=== PATIENT | male | born 1990 | race African-American/Black ===

== ENCOUNTER 2016-06-25 19:34 | Emergency (ER) | payer MEDICAID, OTHER ==
[~2016-06-25] VITALS: Ht 188 cm; Wt 77.1 kg
[2016-06-25 20:09] LABS: Basophils # (auto) 0.1 uL; Basophils % (auto) 0.4 % (0.0-2.0); DEFINITIVE VIEW TRANSMISSION; Eosinophils # (auto) 0 uL; Eosinophils % (auto) 0.1 % (0.0-7.0); Hematocrit 32.2 % (41.0-53.0); Hemoglobin 10.4 g/dL (13.5-17.5); Lymphocytes # (auto) 3.8 uL; Lymphocytes % (auto) 19.6 % (10.0-50.0); Mean Corpuscular Hemoglobin 26.8 pg (28.0-32.0); Mean Corpuscular Hgb Conc. 32.3 g/dL (32.0-36.0); Mean Corpuscular Volume 82.7 fL (80.0-100.0); Mean Platelet Volume 12.5 fL (7.4-10.4); Monocytes # (auto) 1.4 uL; Monocytes % (auto) 7.4 % (0.0-12.0); Neutrophils # (auto) 14.1 uL; Neutrophils % (auto) 72.5 % (37.0-80.0); Platelet Count (auto) 192 10^3/uL (140-450); Red Cell Distribution Width 15.4 % (11.6-16.0); White Blood Cell 19.4 10^3/uL (4.4-10.8)
[2016-06-25 20:14] LABS: Partial Thromboplastin Time 23.4 sec (22.64-33.71)
[2016-06-25 20:23] LABS: BUN/Creatinine Ratio 7.8; Calcium 7.9 mg/dL (8.5-10.1); Potassium 3.1 mmol/L (3.5-5.1)
[2016-06-25 20:25] LABS: INR 1.2 (0.9-1.15)
[2016-06-25 20:29] LABS: Acetaminophen < 2.0 ug/mL (10-30); Salicylate < 1.7 mg/dL (2.8-20.0)
[2016-06-25 20:33] LABS: Bilirubin, Total 0.3 mg/dL (0.2-1.0); Total Protein 8.1 g/dL (6.4-8.2)
[2016-06-25 21:00] LABS: Urine Bilirubin Negative (Negative); Urine Blood Negative /uL (Negative); Urine Color Yellow (Yellow); Urine Glucose TRACE mg/dL (Normal); Urine Hyaline Cast MANY /lpf (0 - 2); Urine Ketone TRACE (Negative); Urine Mucus FEW (None Seen); Urine Nitrite Negative (Negative); Urine RBC 1 /hpf (0 - 3); Urine Squamous Epithelial Cell FEW /hpf (<5)
[2016-06-25] MEDS ORDERED: CEFTRIAXONE SODIUM 2 GM in D5W 5% 50 ML IV ONE (22:00)
[2016-06-25] MEDS ORDERED: SULFAMETHOX W/TRIMETH(800/160MG) DS TAB PO ONE (22:00)
[2016-06-25] MEDS ORDERED: cefTRIAXone 1GM/50ML D5W 50 ML IV ONE ×2 (22:30)
[2016-06-25] MEDS ORDERED: VANCOMYCIN 1GM/250ML D5W 250 ML IV ONE (22:30)
[2016-06-26] MEDS ORDERED: LIDOCAINE 2%HCL (LOCAL ANESTH.) INJ 20ML MDV ONE (06:02)
[2016-06-26] MEDS ORDERED: BACITRACIN-POLYMYXIN B TOPICAL OINT UD TOP ONE (06:10)
[2016-06-26] MEDS ORDERED: SODIUM CHLORIDE 0.9% 1,000 ML IV ONE (08:45)
[2016-06-26] MEDS ORDERED: POTASSIUM CHL 20 Meq TABLET PO ONE (08:45)
[2016-06-26 09:02] LABS: Basophils # (auto) 0 uL; Basophils % (auto) 0.3 % (0.0-2.0); DEFINITIVE VIEW TRANSMISSION; Eosinophils # (auto) 0 uL; Eosinophils % (auto) 0.1 % (0.0-7.0); Hemoglobin 8.9 g/dL (13.5-17.5); Lymphocytes # (auto) 2.1 uL; Lymphocytes % (auto) 27.1 % (10.0-50.0); Mean Corpuscular Hgb Conc. 32.8 g/dL (32.0-36.0); Mean Corpuscular Volume 82.1 fL (80.0-100.0); Mean Platelet Volume 11.4 fL (7.4-10.4); Monocytes # (auto) 0.7 uL; Monocytes % (auto) 9.3 % (0.0-12.0); Neutrophils % (auto) 63.2 % (37.0-80.0); Platelet Count (auto) 127 10^3/uL (140-450); Red Cell Distribution Width 15.6 % (11.6-16.0); SUSPECT VIEW TRANSMISSION; White Blood Cell 7.9 10^3/uL (4.4-10.8)
[2016-06-26 09:25] LABS: BUN/Creatinine Ratio 9.5; Bilirubin, Total 0.3 mg/dL (0.2-1.0); Calcium 8.2 mg/dL (8.5-10.1); Potassium 4.1 mmol/L (3.5-5.1)
[2016-06-26] MEDS ORDERED: SODIUM CHLORIDE 0.9% 1,000 ML IV SCH (09:45)
[2016-06-26] MEDS: SODIUM CHLORIDE 0.9% 1,000 ML IV SCH ×2 (10:30→20:30)
[2016-06-26 11:49] LABS: Hypochromia Slight; Platelet Estimate Decreased
[2016-06-27] MEDS: SODIUM CHLORIDE 0.9% 1,000 ML IV SCH (06:30)
[2016-06-27] MEDS ORDERED: SODIUM CHLORIDE 0.9% 1,000 ML IV SCH (09:45)
[2016-06-28] MEDS ORDERED: LORazepam 0.5 MG TAB PO ONE (00:45)
[2016-06-28] MEDS ORDERED: LORATADINE 10 MG TAB PO ONE (17:00)
[2016-06-28] MEDS ORDERED: LORATADINE 10 MG TAB ONE (22:00)
[2016-06-29 07:30] VITALS: BP 126/64
[2016-06-29] MEDS ORDERED: LORATADINE 10 MG TAB ONE (09:31)
[2016-06-29] MEDS ORDERED: LORATADINE 10 MG TAB PO SCH (10:00)
== END 2016-06-29 18:46 | disposition home or self-care (01) ==
LOC: EDBD 19:34 → ER 19:37
DX: A41.9 Sepsis, unspecified organism (principal); S61.511A Laceration without foreign body of right wrist, initial encounter; S51.812A Laceration without foreign body of left forearm, initial encounter; X78.1XXA Intentional self-harm by knife, initial encounter; Y93.89 Activity, other specified; Y99.8 Other external cause status; Y92.091 Bathroom in other non-institutional residence as the place of occurrence of the external cause; F32.9 Major depressive disorder, single episode, unspecified; B20 Human immunodeficiency virus [HIV] disease; E87.6 Hypokalemia; R73.9 Hyperglycemia, unspecified; F12.10 Cannabis abuse, uncomplicated
CPT/HCPCS: 12002; 36415; 36600; 51702; 70450; 71010; 80053; 80329; 81001; 82550; 82805; 83605; 84484; 85025; 85610; 85730; 86850; 86900; 86901; 87040; 93005; 96361; 96365; 96368; 99285; G0434; J0696; J3370; J7060

== ENCOUNTER 2016-07-04 09:58 | Emergency (ER) | payer MEDICAID ==
[~2016-07-04] VITALS: Ht 180.3 cm; Wt 59.9 kg
[2016-07-04 10:20] VITALS: BP 115/73
== END 2016-07-04 14:15 | disposition left against medical advice (07) ==
LOC: ER 09:58
DX: S61.502A Unspecified open wound of left wrist, initial encounter (principal); S61.501A Unspecified open wound of right wrist, initial encounter; Z48.01 Encounter for change or removal of surgical wound dressing; Z53.21 Procedure and treatment not carried out due to patient leaving prior to being seen by health care provider; X58.XXXA Exposure to other specified factors, initial encounter; Y93.89 Activity, other specified; Y99.8 Other external cause status; Y92.89 Other specified places as the place of occurrence of the external cause

== ENCOUNTER 2020-04-09 20:03 | Emergency (ER) | payer MEDICAID ==
[~2020-04-09] VITALS: Ht 180.3 cm; Wt 68.0 kg
[2020-04-09] MEDS ORDERED: CLINDAMYCIN 900MG IV 50 ML IV ONE (20:45)
[2020-04-09] MEDS ORDERED: MORPHINE SULF INJ 2 MG/ML SYRINGE 1ML IV ONE (20:45)
[2020-04-09 22:19] LABS: Basophils # (auto) 0 10 ^3/uL (0-0.2); Basophils % (auto) 0.1 % (0.0-2.0); Eosinophils # (auto) 0 10 ^3/uL (0-0.8); Hematocrit 38.2 % (41.0-53.0); Lymphocytes # (auto) 0.9 10 ^3/uL (0.4-5.4); Lymphocytes % (auto) 5.1 % (10.0-50.0); Mean Corpuscular Hemoglobin 29.4 pg (28.0-32.0); Mean Corpuscular Volume 86.7 fL (80.0-100.0); Monocytes # (auto) 1.8 10 ^3/uL (0-1.3); Monocytes % (auto) 10.5 % (0.0-12.0); Neutrophils % (auto) 84.3 % (37.0-80.0); Platelet Count (auto) 158 10^3/uL (140-450); Red Blood Cells 4.41 10^6/uL (4.5-5.90); Red Cell Distribution Width 12.9 % (11.8-14.3); White Blood Cell 16.7 10^3/uL (4.4-10.8)
[2020-04-09 22:38] LABS: Albumin 3.1 g/dL (3.4-5.0); Calcium 8.6 mg/dL (8.5-10.1); Potassium 3.6 mmol/L (3.5-5.1)
[2020-04-09 22:43] LABS: Bilirubin, Total 1.1 mg/dL (0.2-1.0); Total Protein 9.8 g/dL (6.4-8.2)
[2020-04-09] MEDS ORDERED: cefTRIAXone 1GM/50ML D5W 50 ML IV ONE (23:30)
[2020-04-10 02:50] VITALS: BP 124/80
== END 2020-04-10 03:40 | disposition short-term general hospital (02) ==
LOC: ER 20:05
DX: L03.211 Cellulitis of face (principal); K05.219 Aggressive periodontitis, localized, unspecified severity; D72.829 Elevated white blood cell count, unspecified; B20 Human immunodeficiency virus [HIV] disease
CPT/HCPCS: 36415; 36600; 70486; 80053; 82805; 83615; 85025; 87040; 96365; 96367; 96375; 99285; J2270; J3490